=== PATIENT | male | born 1950 | race Caucasian/White ===

== ENCOUNTER 2017-01-21 18:52 | Emergency (ER) | payer OTHER, MEDICAID ==
[~2017-01-21] VITALS: Ht 170.2 cm; Wt 73.0 kg
[2017-01-21] MEDS ORDERED: METF10002 PO (19:04)
[2017-01-21] MEDS ORDERED: KETOROLAC 60MG/2ML VIAL IM ONE (20:00)
[2017-01-21 20:08] VITALS: BP 107/78
== END 2017-01-21 20:33 | disposition home or self-care (01) ==
LOC: ER 20:19
DX: S39.012A Strain of muscle, fascia and tendon of lower back, initial encounter (principal); E11.9 Type 2 diabetes mellitus without complications; I10 Essential (primary) hypertension; E78.00 Pure hypercholesterolemia, unspecified; Z85.46 Personal history of malignant neoplasm of prostate; Z95.5 Presence of coronary angioplasty implant and graft; Z79.4 Long term (current) use of insulin; V43.52XA Car driver injured in collision with other type car in traffic accident, initial encounter; Y93.89 Activity, other specified; Y92.410 Unspecified street and highway as the place of occurrence of the external cause; Y99.8 Other external cause status
CPT/HCPCS: 96372; 99283; J1885